=== PATIENT | female | born 1990 ===

== ENCOUNTER 2022-08-01 18:13 | Emergency (ER) | payer SELFPAY ==
[2022-08-01] MEDS ORDERED: Acetaminophen 500 MG TAB ONE (20:28)
[2022-08-01] MEDS ORDERED: Aspirin Chewable 81 MG TAB ONE (20:28)
[2022-08-01 20:54] LABS: #Basophils 0.1 thou/uL (0.0-0.2); #Neutrophils 5.7 thou/uL (1.40-6.50); %Basophils 0.7 % (0.0-1.0); %Eosinophils 0.3 % (0.0-10.0); %Lymphocytes 30.8 % (21.0-51.0); %Monocytes 9.9 % (0.0-10.0); %Neutrophils 58.3 % (42.0-75.0); Mean Corpuscular HGB CONC 34.2 g/dL (32.0-36.0); Mean Corpuscular Hemoglobin 33.7 pg (27.0-31.0); Mean Corpuscular Volume 98.6 fl (78.0-98.0); Mean Platelet Volume 7.2 fL (7.4-10.4); Platelet Count 405 10x3/uL (130-400); Red Blood Cell (RBC) Count 4.16 mill/uL (4.20-5.40); White Blood Cell (WBC) Count 9.8 10x3/uL (4.8-10.8)
[2022-08-01 21:14] LABS: ALT (SGPT) 17 U/L (8-55); AST (SGOT) 17 U/L (5-34); Albumin 4.2 g/dL (3.5-5.0); Alkaline Phosphatase 64 U/L (40-110); Anion Gap 16 mmol/L (10-20); BUN (Urea Nitrogen) 11 mg/dL (7.0-18.7); Bilirubin, Total 0.5 mg/dL (0.2-1.2); Calc. Creatinine Clearance 0 mL/min (70-130); Calcium 9.6 mg/dL (7.8-10.44); Carbon Dioxide 25 mmol/L (22-29); Chloride 104 mmol/L (98-107); Estimated GFR 114; Globulin 3.5 g/dL (2.4-3.5); Glucose 85 mg/dL (70-105); Potassium 3.6 mmol/L (3.5-5.1); Protein, Total 7.7 g/dL (6.0-8.3); Sodium 141 mmol/L (136-145)
== END 2022-08-01 22:01 | disposition home or self-care (01) ==
LOC: ERS 18:13
DX: R07.9 Chest pain, unspecified (principal); F17.290 Nicotine dependence, other tobacco product, uncomplicated
CPT/HCPCS: 36415; 71045; 80053; 84484; 85025; 93005

== ENCOUNTER 2023-01-31 16:48 | Emergency (ER) | payer SELFPAY ==
[2023-01-31] MEDS ORDERED: Ketorolac Tromethamine 30 MG/ML VIAL ONE (17:46)
== END 2023-01-31 18:23 | disposition home or self-care (01) ==
LOC: ERS 16:48
DX: M79.642 Pain in left hand (principal); F17.290 Nicotine dependence, other tobacco product, uncomplicated
CPT/HCPCS: 96372; J1885

== ENCOUNTER 2023-06-09 12:01 | Emergency (ER) | payer SELFPAY ==
[2023-06-09] MEDS ORDERED: Ketorolac Tromethamine 30 MG/ML VIAL ONE (12:11)
== END 2023-06-09 13:07 | disposition home or self-care (01) ==
LOC: ERS 12:01
DX: M25.571 Pain in right ankle and joints of right foot (principal); F17.290 Nicotine dependence, other tobacco product, uncomplicated
CPT/HCPCS: 96372; J1885